=== PATIENT | female | born 1990 | race Native Hawaiian/Other Pacific Islander ===

== ENCOUNTER 2022-07-26 08:58 | Outpatient (CLI) | payer OTHER | END 2022-07-26 22:18 | disposition home or self-care (01) | LOC: US 08:58 | PROVIDERS: ATTEND Internal Medicine | DX: R10.9 Unspecified abdominal pain (principal); R11.2 Nausea with vomiting, unspecified; R55 Syncope and collapse ==

== ENCOUNTER 2022-09-07 08:06 | Outpatient (CLI) | payer OTHER | END 2022-09-07 19:18 | disposition home or self-care (01) | LOC: NM 08:06 | PROVIDERS: ATTEND Internal Medicine | DX: R10.9 Unspecified abdominal pain (principal); R11.2 Nausea with vomiting, unspecified; R55 Syncope and collapse | CPT/HCPCS: A9537 ==

== ENCOUNTER 2023-01-23 08:39 | Outpatient (CLI) | payer OTHER | END 2023-01-23 19:19 | disposition home or self-care (01) | LOC: LABW 08:39 | PROVIDERS: ATTEND Internal Medicine | DX: R19.7 Diarrhea, unspecified (principal) | CPT/HCPCS: 87324; 87449 ==